=== PATIENT | female | born 1950 | race African-American/Black ===

== ENCOUNTER 2017-08-11 13:03 | Emergency (ER) | payer MEDICARE, OTHER ==
[~2017-08-11] VITALS: Ht 160 cm; Wt 69.0 kg
[2017-08-11] MEDS ORDERED: MAGNESIUM/ALUMINUM HYDROXIDE/SIMETHICONE 30ML UDC PO ONE (14:30)
[2017-08-11] MEDS ORDERED: VISCOUS LIDOCAINE 2% 15 ML UDC PO ONE (14:30)
[2017-08-11] MEDS ORDERED: DIATR MEGLU/DIATRIZOATE SOLN 120ML ONE (15:15)
[2017-08-11 16:29] LABS: CHLORIDE 107 mEq/L (98-107)
[2017-08-11 16:30] LABS: INR 1.1
[2017-08-11 16:31] LABS: BASOPHILS % 0.4 % (0.0-2.0); EOSINOPHILS % 2.9 % (0.0-5.0); HEMATOCRIT. 41.2 % (36.0-48.0); HEMOGLOBIN. 13.5 g/dL (12.0-16.0); LYMPHOCYTES % 24.9 % (20.0-50.0); MEAN CORPUSCULAR HEMOGLOBIN 31.3 pg (28.0-32.0); MEAN CORPUSCULAR VOLUME 95.2 fL (81.0-99.0); MEAN PLATELET VOLUME 9.4 fl (7.4-10.4); MONOCYTES % 7.2 % (2.0-8.0); NEUTROPHILS % 64.6 % (40.0-76.0); PLATELET 225 x1000/uL (130-400); RED BLOOD CELL COUNT 4.33 mill/uL (4.2-5.4); RED CELL DISTRIBUTION WIDTH 12.8 % (11.6-14.6)
[2017-08-11 16:34] LABS: CARBON DIOXIDE 29 mEq/L (21-32)
[2017-08-11 16:38] LABS: TROPONIN I < 0.02 ng/mL (0.00-0.04)
[2017-08-11 18:10] VITALS: BP 182/98
== END 2017-08-11 18:12 | disposition left against medical advice (07) ==
LOC: ER 14:23 → CANBEDREQ 20:56
DX: R07.9 Chest pain, unspecified (principal); K44.9 Diaphragmatic hernia without obstruction or gangrene; R13.10 Dysphagia, unspecified; Z88.0 Allergy status to penicillin
CPT/HCPCS: 36415; 71010; 74220; 80053; 83605; 83690; 83880; 84484; 85025; 85610; 93005; 99285; Q9963